=== PATIENT | female | born 1990 | race Caucasian/White ===

== ENCOUNTER 2024-07-14 20:47 | Emergency (ER) | payer MEDICAID, SELFPAY ==
[2024-07-14 21:01] VITALS: BP 106/70; PULSE 70; RESP 16; TEMP 36.7; O2SAT 96; BMI 20.9
--- NOTE | 2024-07-14 21:04 | ECG_ITS ---
[facility] Test Date: 2024-07-14 Pat Name: Herlinda Mckinney Department: Room: Gender: Female Inside Wirer: : 1990 Requested By: Clark Juarez Order Number: [id number] Alyson MD: Darryl Walsh M.D. Measurements Intervals [place] Rate: 71 P: 72 MS: 170 QRS: 10 QRSD: 87 T: 58 QT: 371 QTc: 403 Interpretive Statements SINUS RHYTHM WITH SINUS ARRHYTHMIA No previous ECG available for comparison Electronically Signed On 07-14-2024 21:47:30 CERTIFIED ALCOHOL AND DRUG COUNSELOR by Darryl Walsh M.D. [id number]
--- NOTE | 2024-07-14 22:22 | XRR_ITS ---
PROCEDURE INFORMATION: Exam: XR Chest Exam date and time: 07/14/2024 10:41 PM Age: 34 years old Clinical indication: Pain; Chest pressure and radiating; Additional info: Cp TECHNIQUE: Imaging protocol: Radiologic exam of the chest. Views: 1 view. COMPARISON: No relevant prior studies available. FINDINGS: Lungs: Unremarkable. No consolidation. Pleural spaces: Unremarkable. No pleural effusion. No pneumothorax. Heart/Mediastinum: Unremarkable. No cardiomegaly. Bones/joints: Unremarkable. XR/XR chest 1V portable [id number] IMPRESSION: No acute cardiopulmonary process.
[2024-07-14 22:45] LABS: Basophils # 0.1 10^3/uL (0.0-0.1); Basophils % 0.6 %; Eosinophils # 0.4 10^3/uL (0.0-0.8); Eosinophils % 5.3 %; Lymphocytes # 2.4 10^3/uL (0.8-4.8); Lymphocytes % 28.9 %; Mean Corpuscular Volume 90.9 fl (85-98); Mean Platelet Volume 9.8 fL (7.4-10.4); Monocytes # 0.6 10^3/uL (0.2-0.9); Monocytes % 7.7 %; Neutrophils # 4.71 10^3/uL (1.8-7.7); Neutrophils % 57.3 %; Nucleated Red Blood Cells % 0 %; Platelet Count 264 10^3/cmm (157-399); Red Cell Distribution Width 12.4 % (12.1-15.1); White Blood Count 8.23 10^3/uL (3.29-11.43)
[2024-07-14 23:11] LABS: Anion Gap 13.1 (5-19); Blood Urea Nitrogen 12 mg/dL (6-20); Calcium 8.9 mg/dL (8.5-10.5); Carbon Dioxide 27 mmol/L (22-29); Chloride 103 mmol/L (98-107); Creatinine Clr Calc Pharmacy 146.6844; Glomerular Filtration Rate 140.4 mL/min (90-130); Glucose 91 mg/dL (65-115); Osmolality Calculated 287 mOsm/kg (285-295); Potassium 4.1 mmol/L (3.5-5.1); Sodium 139 mmol/L (136-145); Troponin(5th) Baseline < 6 ng/L (0-10)
--- NOTE | 2024-07-15 00:43 | ED_ITS ---
HPI - Back Pain/Injury 2 General: Chief Complaint: Back Pain/Injury Stated Complaint: CHEST TIGHTNESS sharp burning in left thigh calf Time Seen by Provider: 07/15/24 00:29 Source: patient Mode of arrival: ambulatory Limitations: no limitations History of Present Illness: Patient is a 34-year-old female who presents the emergency department complaining of left lower extremity pain for the past week. During her time in the waiting room, she had complained of sudden onset chest pressure and thus had EKG obtained that showed normal sinus rhythm with no STEMI. She also had normal baseline troponin as well as unremarkable chest x-ray. Rest of her labs are normal. At time of my examination, she had stated that her complaint that brought her in was some intermittent left lower extremity pain. She states that she googled her symptoms and was concerned about a blood clot. She has no previous history of blood clots, no history of blood dyscrasias, no history of cancer, and no other hypercoagulable risk factors. She denies any recent trauma or known injury, though does state that she has been lifting more recently. She does note a history of sciatica, she initially thought this was her sciatica but is also concerned that ibuprofen has not been helping. She is not reporting any unilateral leg swelling, redness, shortness of breath, or other symptoms at this time. Pain worse with movement. She also notes that she feels like the pain moves around if I rub on it. She is also noting some left lower back pain at this time. MD elicited complaint: back pain (With left lower extremity pain) Pertinent past history: prior back pain Onset (ago): week(s) Timing: intermittent Severity: moderate Similar Symptoms Previously: Yes Associated symptoms: Deny abdominal pain, chills, fever(s), nausea or vomiting Related Data Previous Rx's ?Medication ?Instructions ?Recorded ketorolac 10 mg tablet 10 mg PO Q8H PRN pain #15 ta bs 07/15/24 prednisone 20 mg tablet 60 mg (3 x 20 mg) PO ONCE 5 days 07/15/24 #15 tabs Allergies Allergy/AdvReac Type Severity Reaction Status Date / Time No Known Drug Allergies Allergy Unknown Verified 07/14/24 21:09 Review of Systems 2 General: Reports: 10 or more systems reviewed and unremarkable except in HPI and below Const: Denies: fever(s) or chills Card: Denies: chest pain Resp: Denies: dyspnea or productive cough GI: Denies: abdominal pain, nausea, vomiting or diarrhea : Denies: flank pain Musc: Reports: back pain and extremity pain (Left lower); Denies: neck pain, extremity swelling, joint pain, joint swelling, joint redness, joint warmth, limited range of motion or muscle weakness Skin/Breast: Denies: rash Neuro: Denies: headache(s), numbness in extremities or weakness in extremities Physical Exam 2 Const: COMMON NORMALS: no acute distress, patient oriented x3, no limitations, healthy appearing, alert and well nourished GENERAL APPEARANCE: anxious HENMT: COMMON NORMALS: normocephalic and atraumatic HEAD & SCALP: n ormocephalic and atraumatic Neck/C-Spine: COMMON NORMALS: full ROM, supple and no meningeal signs Resp: COMMON NORMALS: normal respiratory effort, No use of accessory muscles and clear to auscultation bilaterally AUSCULTATION: clear to auscultation bilaterally Cardio: COMMON NORMALS: regular rate and regular rhythm RATE: regular rate RHYTHM: regular rhythm Extremity: COMMON NORMALS: normal to inspection, full ROM, capillary refill normal, no joint enlargement and no clubbing, cyanosis or edema NARRATIVE EXTREMITY EXAM: There is no swelling to the left calf. Very minor reproducible tenderness to palpation to the left lower extremity diffusely. No palpable cord. No redness. Dorsalis pedis pulse and posterior tibial pulse palpable. Neuro: COMMON NORMALS: patient oriented x3, moves all extremities, no focal motor deficits and no sensory deficits noted SENSORIUM/ORIENTATION: Yes alert MENINGEAL SIGNS: Yes no meningeal signs Skin: COMMON NORMALS: no rashes or lesions noted GENERAL SKIN EXAM: no rashes or lesions noted Course 2 Vital Signs: Vital signs: Vital Signs Temperature 98.1 F 07/14/24 21:01 Pulse Rate 70 07/14/24 21:01 Respiratory Rate 16 07/14/24 21:01 Blood Pressure 106/70 07/14/24 21:01 Pulse Oximetry 96 07/14/24 21:01 Oxygen Delivery Me thod Room Air 07/14/24 21:01 MDM - Back Pain/Injury Medical Decision Making This patient has had intermittent left lower extremity pain. History of sciatica. She had some chest pain during winter and, acute coronary syndrome ruled out with troponin, EKG, and chest x-ray being unremarkable. She had stated that at that time she was having a panic attack, likely this is from her anxiety. I also think this has a component with her left lower extremity pain, as she states she googled her symptoms and was concerned about the blood clot. There are no physical exam findings of a blood clot, and certainly she has no historical risk factors that would make me think so. Even though I did offer ultrasound if it would make her feel better that there is not a blood clot, she states she would rather elect for treating pain. She does have the sciatica, and has been having some back pain, this could be an atypical presentation so we will treat with steroids and Toradol. She verbalized understanding of the return precautions, such as if she has any unilateral redness or swelling to return to the ED. All other questions and concerns were addressed. I do feel that this is musculoskeletal in nature versus sciatica. Labs 07/14/24 22:40 07/14/24 22:40 Radiology Impressions Chest X-Ray 07/14/24 22:22 IMPRESSION: No acute cardiopulmonary process. Laboratory Results WBC 8.23 10^3/uL (3.29-11.43) 07/14/24 22:40 RBC 4.40 10^6/uL (3.85-5.65) 07/14/24 22:40 Hgb 13.20 g/dL (11.27-16.99) 07/14/24 22:40 Hct 40.0 % (36-47) 07/14/24 22:40 MCV 90.9 fl (85-98) 07/14/24 22:40 MCH 30.0 pg (27-33) 07/14/24 22:40 MCHC 33.0 g/dL (30-55) 07/14/24 22:40 RDW 12.4 % (12.1-15.1) 07/14/24 22:40 Plt Count 264 10^3/cmm (157-399) 07/14/24 22:40 MPV 9.8 fL (7.4-10.4) 07/14/24 22:40 Neut % (Auto) 57.3 % 07/14/24 22:40 Lymph % (Auto) 28.9 % 07/14/24 22:40 [place] % (Auto) 7.7 % 07/14/24 22:40 Eos % (Auto) 5.3 % 07/14/24 22:40 Baso % (Auto) 0.6 % 07/14/24 22:40 Neut # (Auto) 4.71 10^3/uL (1.8-7.7) 07/14/24 22:40 Lymph # (Auto) 2.4 10^3/uL (0.8-4.8) 07/14/24 22:40 [place] # (Auto) 0.6 10^3/uL (0.2-0.9) 07/14/24 22:40 Eos # (Auto) 0.4 10^3/uL (0.0-0.8) 07/14/24 22:40 Baso # (Auto) 0.1 10^3/uL (0.0-0.1) 07/14/24 22:40 Nucleated RBC % (auto) 0 % 07/14/24 22:40 Nucleated RBCs # 0.0 /100WBC 07/14/24 22:40 Sodium 139 mmol/L (136-145) 07/14/24 22:40 Potassium 4.1 mmol/L (3.5-5.1) 07/14/24 22:40 Chloride 103 mmol/L (98-107) 07/14/24 22:40 Carbon Dioxide 27 mmol/L (22-29) 07/14/24 22:40 Anion Gap 13.1 (5-19) 07/14/24 22:40 BUN 12 mg/dL (6-20) 07/14/24 22:40 Creatinine 0.5 mg/dL (0.5-0.9) 07/14/24 22:40 GFR Calculation 140.4 mL/min (90-130) H 07/14/24 22:40 Glucose 91 mg/dL (65-115) 07/14/24 22:40 Calculated Osmolality 287 mOsm/kg (285-295) 07/14/24 22:40 Calcium 8.9 mg/dL (8.5-10.5) 07/14/24 22:40 Troponin T Baseline < 6 ng/L (0-10) 07/14/24 22:40 All radiology interpretation(s) finalized by discharge Discharge Plan Discharge Patient Disposition: Home Clinical Impression: Lumbar radiculopathy Condition: Stable Prescriptions: New prednisone 20 mg tablet 60 mg PO ONCE 5 Days Qty: 15 0RF ketorolac 10 mg tablet 10 mg PO Q8H PRN (Reason: pain) Qty: 15 0RF Discharge Orders: Discharge ED (Routine); Ordered 07/15/24 Ordered By: Royal Salcedo Patient Instructions: Lumbar Radiculopathy (ED) Activity Restrictions/Additional Instructions: Toradol and prednisone as prescribed. Gentle range of motion exercises as tolerated. Heat to your lower extremity and lower back for added relief. Please follow-up with primary care. If you develop any swelling, redness, or severe worsening of pain to your leg, please return to the ED as we discussed. I hope you get feeling better soon. Print Language: Tamazight Coding Level of Care Code ED Video Network Engineer for Adonis Bradshaw
[2024-07-15] MEDS: ketorolac 60 mg/2 mL INJ IM (00:48)
[2024-07-15] MEDS: dexamethasone 10 mg/mL INJ IM (00:49)
[2024-07-15 01:00] VITALS: BP 112/74; PULSE 65; RESP 16; O2SAT 98
[2024-07-15 01:01] VITALS: BP 112/74; PULSE 67; O2SAT 96
== END 2024-07-15 01:02 | disposition home or self-care (01) ==
PROVIDERS: Emergency Medicine; Emergency Provider Physician Assistant
DX: M54.16 Radiculopathy, lumbar region (principal)
CPT/HCPCS: 36415; 71045; 80048; 84484; 85025; 93005; 96372; 99285; J1100; J1885

== ENCOUNTER 2025-03-08 16:37 | Emergency (ER) | payer MEDICAID, SELFPAY ==
[2025-03-08 16:45] VITALS: BP 131/79; PULSE 67; TEMP 36.8; O2SAT 98; BMI 21.9
--- NOTE | 2025-03-08 17:45 | ED_ITS ---
HPI - Dental/Oral General: Chief complaint: Dental/Oral Stated complaint: sore on top of mouth Time Seen by Provider: 03/08/25 17:30 Source: patient Mode of arrival: ambulatory Limitations: no limitations History of Present Illness: Patient is a 34-year-old female presents emergency department planing of right upper dental pain. Reports that has been going on for a week, has a history of dental abscess and that this feels similar. Has not tried to contact dentist, states she does not have insurance. No trouble swallowing or trouble breathing. Pain worse with chewing and with drinking cold liquids. No headache, fevers, chills, or any other signs or symptoms of systemic illness. MD Complaint: tooth pain Onset (ago): week(s) Duration: constant Exacerbating factors: chewing, cold and drinking fluids Context: history of dental caries and poor dental care Associated symptoms: Denies ear or mastoid pain or fever(s) Treatment prior to arrival: none Related Data Previous Rx's ?Medication ?Instructions ?Recorded ketorolac 10 mg tablet 10 mg PO Q8H PRN pain #15 ta bs 07/15/24 amoxicillin 875 mg-potassium 1 tab PO BID 7 days #14 t abs 03/08/25 clavulanate 125 mg tablet Allergies Allergy/AdvReac Type Severity Reaction Status Date / Time No Known Drug Allergies Allergy Unknown Verified 03/08/25 16:50 Review of Systems General: Reports: 10 or more systems reviewed and unremarkable except in HPI and below Const: Denies: fever(s), chills or fatigue Eyes: Denies: change in vision ENMT: Reports: dental pain and sinus pain; Denies: throat pain, ear or mastoid pain or nasal discharge Card: Denies: chest pain, palpitations, swelling of feet/ankles or lightheadedness Resp: Denies: dyspnea, productive cough or wheezing Musc: Denies: neck pain, back pain or joint pain Skin/Breast: Denies: rash Neuro: Denies: headache(s), numbness in extremities or weakness in extremities Physical Exam Const: COMMON NORMALS: no acute distress and no limitations GENERAL APPEARANCE: cooperative, comfortable and well developed ORIENTATION/CONSCIOU SNESS: Yes awake HENMT: COMMON NORMALS: normocephalic, atraumatic and hearing grossly normal bilaterally HEAD & SCALP: normocephalic and atraumatic OTHER: Overall poor dentition with multiple caries and restorations. Right upper dentition there is gingival edema and tenderness to palpation. Posterior oropharyngeal exam otherwise unremarkable, no uvular edema or deviation. Eye: COMMON NORMALS: Equal, round and reactive pupils present, EOMs intact bilaterally and conjunctivae normal CONJUNCTIVA: Yes conjunctivae normal PUPIL: Yes Equal, round and reactive pupils present Neck/C-Spine: COMMON NORMALS: full ROM and supple Extremity: COMMON NORMALS: normal to inspection, full ROM and capillary refill normal Skin: COMMON NORMALS: no rashes or lesions noted GENERAL SKIN EXAM: no rashes or lesions noted Course Vital Signs: Vital signs: Vital Signs Temperature 98.2 F 03/08/25 16:45 Pulse Rate 67 03/08/25 16:45 Blood Pressure 131/79 03/08/25 16:45 Pulse Oximetry 98 03/08/25 16:45 Oxygen Delivery Me thod Room Air 03/08/25 16:45 MDM - Dental/Oral Medical Decision Making Clinical signs and symptoms of a dental abscess, she is given instructions for dental referral and will be started on Augmentin. Decadron shot given here in the emergency department for swelling and a [place] for pain as she has a ride home. No radiology studies performed this visit Discharge Plan Discharge Patient Disposition: Home Clinical Impression: Dental abscess Condition: Stable Prescriptions: New amoxicillin-pot clavulanate 875-125 mg tablet 1 tab PO BID 7 Days Qty: 14 0RF No Action ketorolac 10 mg tablet 10 mg PO Q8H PRN (Reason: pain) Qty: 15 0RF Discharge Orders: Discharge ED (Routine); Ordered 03/08/25 Ordered By: Royal Salcedo Patient Instructions: Dental Abscess (ED), Patient Portal & David Instructions Activity Restrictions/Additional Instructions: Follow-up with the dentist as we discussed. Take the Augmentin as prescribed. Tylenol Motrin for pain. Return with fever, trouble swallowing, or any other major concerns. Print Language: Armenian Coding Level of Care Code ED Adjunct Phlebotomy Instructor for Adonis Bradshaw
[2025-03-08] MEDS: HYDROcodone-acetaminophen 7.5-325 mg Tablet 1 TAB PO (17:48)
== END 2025-03-08 17:59 | disposition home or self-care (01) ==
PROVIDERS: Emergency Provider Physician Assistant
DX: K04.7 Periapical abscess without sinus (principal)
CPT/HCPCS: 96372; 99284; J1100; J9999